=== PATIENT | male | born 1985 | race African-American/Black ===

== ENCOUNTER 2019-09-02 05:09 | Emergency (ER) | payer SELFPAY ==
[~2019-09-02] VITALS: Ht 180.3 cm; Wt 78.7 kg
[2019-09-02 05:11] VITALS: BP 125/85
--- NOTE | 2019-09-02 05:30 | NUR ---
pa at bedside for eval
== END 2019-09-02 05:53 | disposition home or self-care (01) ==
LOC: ED 05:45
DX: K64.4 Residual hemorrhoidal skin tags (principal); F17.210 Nicotine dependence, cigarettes, uncomplicated
CPT/HCPCS: 99282

== ENCOUNTER 2021-06-18 16:11 | Emergency (ER) | payer SELFPAY ==
[~2021-06-18] VITALS: Ht 180.3 cm; Wt 73.7 kg
--- NOTE | 2021-06-18 16:32 | NUR ---
2N CALL, NOT IN LOBBY
[2021-06-18 16:38] VITALS: BP 106/79
[2021-06-18] MEDS ORDERED: BISACODYL 5 MG EC TABLET ONE (19:24)
[2021-06-18] MEDS ORDERED: PINK LADY ENEMA 490 ML BOTTLE PR ONE (19:30)
[2021-06-18] MEDS ORDERED: BISACODYL 5 MG EC TABLET PO ONE (19:30)
--- NOTE | 2021-06-18 19:39 | NUR ---
AWAITING SERGO LEBRON FROM PHARMACY. WILL D/C AFTER.
--- NOTE | 2021-06-18 19:52 | NUR ---
SPOKE WITH JEFFREY IN PHARMACY REGARDING [employer] STATUS STATES SHE WILL SEND IT ONCE SHE OBTAINS THE YELLOW FORM. YELLOW SLIP HAS BEEN SENT AT THIS TIME.
--- NOTE | 2021-06-18 20:46 | NUR ---
SERGO LEBRON ARRIVED FROM PHARMACY. PATIENT REFUSING AT THIS TIME AND STATES HE WOULD RATHER TRY MEDICATION AT HOME. WILL DC PATIENT.
--- NOTE | 2021-06-18 20:47 | NUR ---
Patient given discharge instructions and they have confirmed that they understand the instructions. Patient ambulatory with steady gait. NAD, all questions answered appropriately, denies additional needs at this time. No personal belongings left in room after discharge.
== END 2021-06-18 21:16 | disposition home or self-care (01) ==
LOC: ED 21:01
DX: K59.00 Constipation, unspecified (principal); F17.200 Nicotine dependence, unspecified, uncomplicated
CPT/HCPCS: 74021; 99283